=== PATIENT | female | born 1960 | race Caucasian/White ===

== ENCOUNTER 2021-05-24 12:05 | Emergency (ER) | payer BC ==
[2021-05-24 12:28] VITALS: BP 161/84; PULSE 100; O2SAT 97
[2021-05-24] MEDS ORDERED: Kenalog-40 IM ONE (12:53)
--- NOTE | 2021-05-24 12:57 | ERPHSYRPT ---
- History of Present Illness Time Seen by Provider: 05/24/21 12:33 Source: patient Exam Limitations: no limitations Patient Subjective Stated Complaint: Patient states she has had a cough for approx 3 days. She reports it is productive with yellow sputum. States now she has a sore throat as well. She denies any pain or SOB. Denies any fevers. Denies any issues swallowing. Triage Nursing Assessment: Patient ambulated back to ED without difficulties. She is alert and oriented and answering questions appropriately. No cough noted during assessment. Lungs clear but diminished. Skin warm and dry. Throat examined with no swelling or sores noted inside of mouth or throat upon inspection. Patient's voice is slighly hoarse when speaking. No SOB noted; resps easy, non-labored. Physician History: 60 years old female with history of anxiety, depression, hypertension, hyperlipidemia, fully vaccinated against COVID-19 presented in the ER with complaint of gradually worsening cough productive of clear to yellow sputum mo derate in amount for the last 3 days. Last night she started to have some sore throat. Cough is more with lying down and drainage) her sinuses into throat. No difficulty breathing. Timing/Duration: day(s) (3), gradual onset, worse Cough Quality/Degree: moderate, productive cough Possible Cause: illness exposure Modifying Factors: Worsens With: lying down Associated Symptoms: chest pain/soreness, cough, muscle aches, nasal congestion, nasal drainage, sore throat, No fever, No shortness of breath Allergies/Adverse Reactions: No Known Drug Allergies Allergy (Unverified 05/24/21 12:14) Home Medications: Amitriptyline HCl 1 tab PO HS 05/24/21 [History] Atorvastatin Calcium 1 tab PO HS 05/24/21 [History] Hydrochlorothiazide 25 mg [hydroDIURIL 25 MG] 1 tab PO DAILY 05/24/21 [History] Lisinopril 20 mg [Zestril 20 MG] 1 tab PO DAILY 05/24/21 [History] Sertraline HCl 50 mg [Zoloft 50 mg Tablet] 1 tab PO DAILY 05/24/21 [History] clonazePAM 1 tab PO BID PRN 05/24/21 [History] Hx Tetanus, Diphtheria Vaccination/Date Given: Yes Hx Influenza Vaccination/Date Given: No Hx Pneumococcal Vaccination/Date Given: Yes Immunizations Up to Date: Yes Travel Risk - International Travel Have you traveled outside of the country in past 3 weeks: No - Coronavirus Screening Are you exhibiting any of the following symptoms?: Yes Symptoms: Cough: New Onset Close contact with a COVID-19 positive Pt in past 14-21 Days: No - Vaccine Status Have you recieved a Covid-19 vaccination: Yes [employer]: [employer] - Vaccination Dates Date of 2cond Vaccination (if applicable): October 2020 - Review of Systems Constitutional: No Symptoms Eyes: No Symptoms Ears, Nose, & Throat: Nose Congestion, Throat Pain, Throat Swelling Respiratory: Cough Cardiac: No Symptoms Abdominal/Gastrointestinal: No Symptoms Genitourinary Symptoms: No Symptoms Musculoskeletal: No Symptoms Skin: No Symptoms Neurological: No Symptoms Endocrine: No Symptoms Hematologic/Lymphatic: No Symptoms - Past Medical History Pertinent Past Medical History: Yes Neurological History: No Pertinent History ENT History: No Pertinent History Cardiac History: High Cholesterol, Hypertension Respiratory History: No Pertinent History Endocrine Medical History: No Pertinent History Musculoskeletal History: No Pertinent History GI Medical History: No Pertinent History History: No Pertinent History Psycho-Social History: Anxiety, Depression Female Reproductive Disorders: No Pertinent History Other Medical History: Hyperlipidemia, Insomnia - Past Surgical History Past Surgical History: Yes Neuro Surgical History: No Pertinent History Cardiac: No Pertinent History Respiratory: No Pertinent History Gastrointestinal: Other Genitourinary: No Pertinent History Musculoskeletal: No Pertinent History Female Surgical History: Dilation & Curettage Other Surgical History: Bladder surgery - Social History Smoking Status: Current every day smoker How long have you smoked: 15 years Exposure to second hand smoke: No Drug Use: none Patient Lives Alone: No - Female History Hx Now: No - Nursing Vital Signs Nursing Vital Signs: Initial Vital Signs Temperature 97.4 F 05/24/21 12:14 Pulse Rate 100 H 05/24/21 12:14 Respiratory Rate 20 05/24/21 12:14 Blood Pressure 161/84 05/24/21 12:14 O2 Sat by Pulse Oximetry 97 05/24/21 12:14 Pain Scale Pain Intensity 0 - Physical Exam General Appearance: no apparent distress, alert Eye Exam: PERRL/EOMI, eyes nml inspection Ears, Nose, Throat Exam: TMs normal, pharyngeal erythema, No tonsillar exudate Neck Exam: normal inspection, non-tender, supple, full range of motion Respiratory Exam: normal breath sounds, lungs clear Cardiovascular Exam: regular rate/rhythm, normal heart sounds Back Exam: normal inspection, normal range of motion Extremity Exam: normal inspection, normal range of motion Neurologic Exam: alert, oriented x 3, cooperative Skin Exam: normal color SpO2 Interpretation: normal SpO2: 97 O2 Delivery: Room Air Ordered Tests: Medication Summary Discontinued Medications Generic Name Dose Route Start Last Admin Trade Name Freq PRN Reason Stop Dose Admin Triamcinolone Acetonide 60 mg 05/24/21 12:53 05/24/21 13:29 Triamcinolone Acetonide 40 Mg/Ml Ml IM 05/24/21 12:54 60 mg 1XONLY ONE Administration Triamcinolone Acetonide Confirm 05/24/21 13:26 Triamcinolone Acetonide 40 Mg/Ml Ml Administered 05/24/21 13:27 Dose 80 mg .ROUTE .STK-MED ONE - Progress Progress: re-examined Air Movement: good Progress Note: 05/24/21 13:39 Patient refused chest x-ray or any work-up. She has thick yellow sputum deep cough. We will start her on doxycycline, outpatient follow-up. Discussed signs symptoms of worsening needing return to ER which she seems understanding. Does not want to be tested for Covid as well. Maintaining oxygen saturation well above 95% in room air and not in any distress. 05/24/21 13:40 Blood Culture(s) Obtained: No Antibiotics given: Yes Counseled pt/family regarding: diagnosis, need for follow-up, rad results - Departure Departure Disposition: Home Clinical Impression: Acute bronchitis Qualifiers: Bronchitis organism: unspecified organism Qualified Code(s): J20.9 - Acute bronchitis, unspecified Condition: Stable Critical Care Time: No Referrals: DOCTOR,NO FAMILY [Primary Care Provider] - Follow up/PCP as directed PEYTON MORENO MD [ACTIVE STAFF] - Follow up/PCP as directed (In 2 days for reevaluation) Instructions: Cough, Adult (DC) Additional Instructions: Follow-up with primary care for reevaluation. Continue with antibiotics. Return to ER for worsening cough or if develop fever chills/shortness of breath. Prescriptions: Albuterol Sulfate [Albuterol Sulfate Hfa] 8.5 gm IH Q6H PRN 7 Days #1 inh PRN Reason: Cough Doxycycline Hyclate 100 mg [Vibramycin 100 MG] 100 mg PO BID #14 tab
[2021-05-24] MEDS ORDERED: Kenalog-40 ONE (13:26)
[2021-05-24] MEDS ORDERED: Vibramycin 100 MG PO ONE (13:39)
[2021-05-24] MEDS ORDERED: Vibramycin 100 MG ONE (13:42)
== END 2021-05-24 13:54 | disposition home or self-care (01) ==
LOC: ED 12:05
DX: J20.9 Acute bronchitis, unspecified (principal); R05.9 Cough, unspecified; M79.10 Myalgia, unspecified site; R09.81 Nasal congestion; E78.5 Hyperlipidemia, unspecified; I10 Essential (primary) hypertension; Z72.0 Tobacco use; Z79.899 Other long term (current) drug therapy
CPT/HCPCS: 96372; 99283; J3301; A9270-GY